=== PATIENT | female | born 1995 | race Caucasian/White ===

== ENCOUNTER 2016-10-16 17:01 | Emergency (ER) | payer SELFPAY ==
[~2016-10-16] VITALS: Ht 160 cm; Wt 70.5 kg
[~2016-10-16 17:01] MED LIST: OMNICEF 300MG300 MG PO; TRINESSA 281 TAB PO; ZOFRAN 4MG T4 MG/TAB PO
[2016-10-16 17:16] VITALS: BP 113/59; PULSE 95; TEMP 98.4
== END 2016-10-16 18:17 | disposition home or self-care (01) ==
LOC: COL.ER 17:01
DX: M72.2 Plantar fascial fibromatosis (principal); M79.671 Pain in right foot

== ENCOUNTER 2017-05-09 13:37 | Emergency (ER) | payer SELFPAY ==
[~2017-05-09] VITALS: Ht 160 cm; Wt 70.5 kg
[2017-05-09 13:43] VITALS: TEMP 98.8
[2017-05-09 14:15] LABS: BASO # 0.1 (0.0-0.2); BASO % 0.4 % (0.0-2.0); EOS % 0.2 % (0-4.0); GRAN # 11.1 (1.4-6.5); LYMPH % 7.4 % (20.0-51.0); MEAN CELL VOLUME 83 fl (80.0-100.0); MEAN CORPUSCULAR HGB CONC 33 g/dl (33.0-37.0); MEAN PLATELET VOLUME 8.3 fl (7.4-10.4); MONO % 7.5 % (1.7-9.3); PLATELET COUNT 252 K/mm3 (130-400); RED BLOOD COUNT 4.33 M/mm3 (4.10-5.30); WHITE BLOOD COUNT 13.2 K/mm3 (4.8-10.8)
[2017-05-09 14:15] LABS: COLLECTION METHOD CLEAN CATCH
[2017-05-09 14:16] LABS: HEMOGLOBIN 11.9 g/dl (12.5-16.0); MEAN CORPUSCULAR HEMOGLOBIN 27 pg (27.0-31.0)
[2017-05-09 14:23] LABS: PH 6 (5-8); URINE APPEARANCE Hazy; URINE BACTERIA Rare /hpf; URINE BILIRUBIN Negative (NEGATIVE); URINE BLOOD 2+ (NEGATIVE); URINE COLOR Yellow; URINE GLUCOSE Negative (NEGATIVE); URINE KETONE Trace (NEGATIVE); URINE LEUKOCYTE ESTERASE Trace (NEGATIVE); URINE PROTEIN(semi-quant) Negative (NEGATIVE); URINE RBC 0-2 /hpf; URINE UROBILINOGEN Negative (NEGATIVE)
[2017-05-09 14:26] LABS: ADJUSTED CALCIUM 9.1 mg/dL (8.4-10.2); ALBUMIN 4.2 gm/dL (3.5-5.0); BILIRUBIN,TOTAL 0.6 mg/dL (0.0-1.0); CALCIUM 9.3 mg/dL (8.4-10.2); CREATININE, serum 0.82 mg/dL (0.52-1.25); POTASSIUM 3.8 mmol/L (3.4-5.0); TOTAL PROTEIN 7.9 gm/dL (6.4-8.2)
[2017-05-09 14:50] LABS: COLLECTION METHOD CLEAN CATCH
[2017-05-09 14:56] LABS: PH 6 (5-8); URINE APPEARANCE Clear; URINE BACTERIA Rare /hpf; URINE BILIRUBIN Negative (NEGATIVE); URINE BLOOD 2+ (NEGATIVE); URINE COLOR Yellow; URINE GLUCOSE Negative (NEGATIVE); URINE KETONE Negative (NEGATIVE); URINE LEUKOCYTE ESTERASE Trace (NEGATIVE); URINE PROTEIN(semi-quant) Negative (NEGATIVE); URINE RBC 0-2 /hpf; URINE UROBILINOGEN Negative (NEGATIVE)
[2017-05-09] MEDS ORDERED: ZOFRAN 4MG T4 MG/TAB PO (16:12)
[2017-05-09] MEDS ORDERED: NORCO 325 MG-51 TAB PO (16:12)
[2017-05-09] MEDS ORDERED: OMNICEF 300MG300 MG PO (16:12)
[2017-05-09 16:55] VITALS: BP 122/68; PULSE 88
== END 2017-05-09 16:56 | disposition home or self-care (01) ==
LOC: COL.ER 13:37
PROVIDERS: Emergency Medicine
DX: N39.0 Urinary tract infection, site not specified (principal); N12 Tubulo-interstitial nephritis, not specified as acute or chronic
CPT/HCPCS: J0696; J7030; J7050; Q9967